=== PATIENT | female | born 1990 | race Caucasian/White ===

== ENCOUNTER 2020-02-10 12:56 | Day surgery (SDC) | payer OTHER ==
[2020-02-10] MEDS ORDERED: Promethazine HCl 25 MG/ML VIAL IM PRN (12:59)
[2020-02-10] MEDS ORDERED: hydrALAZINE 20 MG/ML VIAL SLOW IVP PRN ×2 (12:59)
[2020-02-10] MEDS ORDERED: Ondansetron PF 4 MG/2 ML Vial IVP PRN (12:59)
--- NOTE | 2020-02-10 13:06 | PDOC.LDHP ---
Labor and Delivery H&P Chief complaint: other (Sent from [facility] for elevated BP) HPI: Patient had routine visit at [facility] today. Her blood pressure was elvated x 2 in office. She denies LOF. Denies severe features including MORSE, RUQ, scomata. Current gestational age (weeks): 36 Grav: 1 Para: 0 Current complications: breech Abnormal US findings: No (Posterior placenta) Current medications: pre-fidel vitamins Social history: none - Assessment 29 y.o at 36w with elevated BP and Breech presentation - Plan -: Labs ordered. Continuous monitoring Serial BPs If Patient has any severe range BPs or develops severe features I will admit for delivery. Will consult OB hospitalist to consider ECV after epidural placement If patient has mild range BP or is normotensive, i will schedule her to PCS or ECV adn IOl at 37 week.
[2020-02-10 13:27] LABS: Hemoglobin 11.6 g/dL (12.0-16.0); Mean Corpuscular HGB CONC 34.3 g/dL (32.0-36.0); Mean Corpuscular Hemoglobin 30.5 pg (27.0-31.0); Mean Corpuscular Volume 89.1 fL (78.0-98.0); Mean Platelet Volume 7.2 fL (7.4-10.4); Platelet Count 499 thou/uL (130-400); RBC Distribution Width 12.4 % (11.5-14.5); White Blood Cell (WBC) Count 10.5 thou/uL (4.8-10.8)
[2020-02-10 13:28] VITALS: BMI 32.9
[2020-02-10 13:47] LABS: ALT (SGPT) 23 U/L (8-55); AST (SGOT) 19 U/L (5-34); Alkaline Phosphatase 202 U/L (40-110); Anion Gap 13 mmol/L (10-20); BUN (Urea Nitrogen) 10 mg/dL (7.0-18.7); Bilirubin, Total 0.2 mg/dL (0.2-1.2); Calc. Creatinine Clearance 148 mL/min (70-130); Calcium 8.8 mg/dL (7.8-10.44); Carbon Dioxide 18 mmol/L (22-29); Chloride 107 mmol/L (98-107); Estimated GFR-MDRD Greater than 90; Globulin 3.4 g/dL (2.4-3.5); Glucose 114 mg/dL (70-105); Potassium 4.2 mmol/L (3.5-5.1); Protein, Total 6.4 g/dL (6.0-8.3); Sodium 134 mmol/L (136-145)
[2020-02-10 14:34] LABS: Creatinine, Urine 54.54 mg/dL (47-110)
--- NOTE | 2020-02-10 15:21 | PDOC.BPN ---
- Brief Progress Note Encounter Date: 02/10/20 Encounter Time: 15:11 Labs. Laboratory Tests 02/10/20 02/10/20 02/10/20 13:15 13:15 13:30 WBC 10.5 RBC 3.80 L Hgb 11.6 L Hct 33.9 L Plt Count 499 H Sodium 134 L Carbon Dioxide 18 L Glucose 114 H AST 19 ALT 23 U Random Total Protein 12 Urine Creatinine 54.54 BPs:133/79, 138/89, 130/79, 134/80, 136/81, 135/79 Plan; patient is discharged home in good condition. One week follow up with Swati Monahan at [facility]. Will discuss ECV vs. Primary C -section. 24 hour urine kit ordered through office.
== END 2020-02-10 15:20 | disposition home or self-care (01) ==
LOC: L&D/OP 12:56
PROVIDERS: ATTEND Obstetrics & Gynecology
DX: O99.891 Other specified diseases and conditions complicating pregnancy (principal); R03.0 Elevated blood-pressure reading, without diagnosis of hypertension; O32.1XX0 Maternal care for breech presentation, not applicable or unspecified; Z3A.36 36 weeks gestation of pregnancy
CPT/HCPCS: 36415; 80053; 82570; 84156; 85027

== ENCOUNTER 2020-02-17 11:52 | Inpatient (IN) | payer OTHER ==
[2020-02-17] MEDS ORDERED: Promethazine HCl 25 MG/ML VIAL IM PRN ×3 (11:58→16:39)
[2020-02-17] MEDS ORDERED: hydrALAZINE 20 MG/ML VIAL SLOW IVP PRN (11:58)
[2020-02-17] MEDS ORDERED: Ondansetron PF 4 MG/2 ML Vial IVP PRN ×3 (11:58→16:39)
[2020-02-17] MEDS ORDERED: CEFAZOLIN 2 GM in Premix Bag 1 BAG IVPB SCH (12:00)
[2020-02-17] MEDS ORDERED: Bicitra 30 ML UDCUP PO SCH (12:15)
--- NOTE | 2020-02-17 12:16 | PDOC.LDHP ---
Labor and Delivery H&P Chief complaint: other HPI: Pt arrives from office for severe range BPs and BREECH presentation. She reports pressure behind her eyes. Denies Scomata and RUQ pain. Current gestational age (weeks): 37 (a) Due date: 03/08/20 Dating criteria: last menstrual period Grav: 1 Para: 0 Current complications: gestational hypertension (with severe features), breech Current medications: pre- vitamins Previous surgical history: none Allergies/Adverse Reactions: Allergies Allergy/AdvReac Type Severity Reaction Status Date / Time No Known Allergies Allergy Verified 02/10/20 13:28 Social history: none - Physical Exam Abnormal vital signs: Severe BP 172/84 General: NAD Lungs: nonlabored breathing Abdomen: gravid Extremeties: other (+3 reflexes) FHT: category 1 Millard contractions every: none - Vaginal Exam cm dilated: 0 (deferred) - OB Labs Blood type: O RH: positive Antibody Screen: negative HIV: negative RPR: negative HEPSAg: negative 1 hour GCT: negative GBS: negative Urine drug screen: negative Rubella: immune - Assessment L&D Assessment: scheduled primary section GHTN with severe features r/o preeclampsia Breech presentation - Plan Plan: admit to L&D, informed consent obtained, magnesium for seizure prophylaxis, anesthesia consult for pain management -: Dr. Leblanc to assume care for JENNIFER. Swati Monahan to environmental assistant.
[2020-02-17] MEDS ORDERED: Calcium Gluc 4.6 MEQ/10 ML (100 MG/ML) SLOW IVP PRN (12:21)
[2020-02-17] MEDS ORDERED: Ketorolac Tromethamine 30 MG/ML VIAL ONE (12:28)
[2020-02-17] MEDS ORDERED: Oxytocin 10 UNITS/ML VIAL ONE ×2 (12:28→16:47)
[2020-02-17] MEDS ORDERED: Ondansetron PF 4 MG/2 ML Vial ONE (12:28)
[2020-02-17] MEDS ORDERED: Morphine PF 10 MG/10 ML VIAL ONE ×2 (12:28→15:39)
[2020-02-17] MEDS ORDERED: PHENYLEPHRINE-NS 100 MCG/ML 10 ML SYRINGE ONE (12:28)
[2020-02-17] MEDS ORDERED: ePHEDrine 50 MG/ML VIAL ONE (12:28)
[2020-02-17] MEDS ORDERED: Magnesium Sulfate 20 gm/500 ml 20 GM/500 ML BAG ONE (12:29)
[2020-02-17] MEDS ORDERED: Magnesium Sulfate 20 GM/WATER 500 ML BAG IVPB SCH (12:30)
[2020-02-17] MEDS ORDERED: Magnesium Sulfate 20 gm/500 ml 20 GM/500 ML BAG IVPB SCH (12:30)
[2020-02-17] MEDS ORDERED: Sodium Chloride 0.9% 10 ML ONE (12:30)
[2020-02-17 12:39] VITALS: BMI 32.3
[2020-02-17] MEDS: Lactated Ringer's 1,000 ML IV SCH ×2 (12:52→22:49)
[2020-02-17] MEDS ORDERED: diphenhydrAMINE 50 MG/ML VIAL IVP PRN ×2 (13:15→16:39)
[2020-02-17] MEDS ORDERED: Communication Order-Pharmacy FS SCH ×2 (13:15→16:45)
[2020-02-17] MEDS ORDERED: Ondansetron HCl/PF 4 MG/2 ML Vial IVP PRN ×2 (13:15→16:39)
[2020-02-17] MEDS ORDERED: Ketorolac Tromethamine 30 MG/ML VIAL IVP PRN ×2 (13:15→16:39)
[2020-02-17] MEDS ORDERED: Naloxone HCl 0.4 mg/ml Vial IVP PRN ×4 (13:15→16:39)
[2020-02-17] MEDS ORDERED: Naloxone HCl 0.4 mg/ml Vial IV PRN ×2 (13:15→16:39)
[2020-02-17] MEDS ORDERED: Promethazine HCl 25 MG SUPP PR PRN ×2 (13:15→16:39)
[2020-02-17 13:18] LABS: Mean Corpuscular HGB CONC 32.2 g/dL (32.0-36.0); Mean Corpuscular Hemoglobin 29.6 pg (27.0-31.0); Mean Corpuscular Volume 91.9 fL (78.0-98.0); Mean Platelet Volume 7.6 fL (7.4-10.4); Platelet Count 535 thou/uL (130-400); RBC Distribution Width 13.5 % (11.5-14.5); Red Blood Cell (RBC) Count 3.71 mill/uL (4.20-5.40); White Blood Cell (WBC) Count 13.7 thou/uL (4.8-10.8)
[2020-02-17 14:00] LABS: ALT (SGPT) 25 U/L (8-55); AST (SGOT) 26 U/L (5-34); Albumin 3.2 g/dL (3.5-5.0); Alkaline Phosphatase 206 U/L (40-110); Anion Gap 15 mmol/L (10-20); BUN (Urea Nitrogen) 14 mg/dL (7.0-18.7); Bilirubin, Total 0.2 mg/dL (0.2-1.2); Calc. Creatinine Clearance 146 mL/min (70-130); Carbon Dioxide 18 mmol/L (22-29); Chloride 106 mmol/L (98-107); Estimated GFR-MDRD Greater than 90; Globulin 3.3 g/dL (2.4-3.5); Glucose 70 mg/dL (70-105); Potassium 4.2 mmol/L (3.5-5.1); Protein, Total 6.5 g/dL (6.0-8.3); Sodium 135 mmol/L (136-145)
[2020-02-17 14:06] LABS: Syphilis Antibody Nonreactive (Nonreactive); Syphilis Antibody Index 0.04 S/CO (<1.00 Non-Reactive)
[2020-02-17 14:08] LABS: HBSAg Index 0.15 S/CO (0-0.99); Hep B Surf Ag Non-Reactive S/CO (NonReactive)
[2020-02-17 14:55] LABS: Bacteria/HPF 4+ HPF (None Seen); Bilirubin Negative (Negative); Blood, Urine Negative (Negative); Clarity Turbid (Clear); Glucose, Urine (Dipstick) Normal (Negative); Ketone, Urine Negative (Negative); Leukocyte 500 Leu/uL (Negative); Nitrite Negative (Negative); Protein, Urine (Dipstick) Negative (Neg-Trace); Specific Gravity, Urine 1.012 (1.002-1.036); Urobilinogen Normal mg/dL (Less than 2); pH, Urine 6.5 (5.0-9.0)
[2020-02-17] MEDS ORDERED: Fentanyl 100 MCG/2 ML VIAL ONE (15:39)
[2020-02-17] MEDS ORDERED: Dexamethasone 4 mg/ml Vial ONE (15:40)
[2020-02-17] MEDS ORDERED: L&D-Morphine 4 MG/ML VIAL SLOW IVP PRN (16:39)
[2020-02-17] MEDS ORDERED: Meperidine HCl/PF 25 MG/ML VIAL SLOW IVP PRN (16:39)
[2020-02-17] MEDS ORDERED: HYDROmorphone 2 MG/ML VIAL SLOW IVP PRN (16:39)
[2020-02-17] MEDS ORDERED: Ketorolac Tromethamine 30 MG/ML VIAL IVP SCH (16:45)
--- NOTE | 2020-02-17 16:52 | PDOC.OPDEL ---
OB Operative/Delivery Note Delivery Dr/Surgeon: Benji Assist: Light Pre-Delivery Diagnosis: other (Severe PIH, Breech presentation) Procedure/Post Delivery Dx: primary low transverse CS Weeks gestation: 37 Anesthesia: spinal - Findings A Sex: male Weight: 7 lb 4 oz - 1 min: 8 - 5 min: 9 - Additional Findings/Plan Placenta delivered: spontaneous findings: low transverse hysterotomy without extension, normal uterus, normal tubes, normal ovaries Estimated blood loss: 500cc Compilations/Other Findings: marcelino breech presentation Post delivery plan: recovery in LICU
[2020-02-18] MEDS ORDERED: NS / Oxytocin 40 units/1000ml 1,000 ML IV SCH (00:09)
[2020-02-18] MEDS ORDERED: Magnesium Sulfate 20 gm/500 ml 20 GM/500 ML BAG IVPB SCH (00:09)
[2020-02-18] MEDS ORDERED: Ondansetron PF 4 MG/2 ML Vial IVP PRN (00:09)
[2020-02-18] MEDS ORDERED: Misoprostol 200 MCG TAB PR PRN (00:09)
[2020-02-18] MEDS ORDERED: Calcium Gluconate 4.6 MEQ in Sodium Chloride 0.9% 100 ML IVPB PRN (00:09)
[2020-02-18] MEDS ORDERED: Simethicone Chewable 80 MG TAB PO PRN (00:09)
[2020-02-18] MEDS ORDERED: HYDROcodone/Acetaminophen 5/325 mg Tablet PO PRN ×2 (00:09)
[2020-02-18] MEDS ORDERED: hydrALAZINE 20 MG/ML VIAL SLOW IVP PRN (00:09)
[2020-02-18 06:31] LABS: Hemoglobin 7.1 g/dL (12.0-16.0); Mean Corpuscular HGB CONC 33.7 g/dL (32.0-36.0); Mean Corpuscular Hemoglobin 30.4 pg (27.0-31.0); Mean Corpuscular Volume 90.3 fL (78.0-98.0); Platelet Count 376 thou/uL (130-400); RBC Distribution Width 13.4 % (11.5-14.5); Red Blood Cell (RBC) Count 2.35 mill/uL (4.20-5.40); White Blood Cell (WBC) Count 15.9 thou/uL (4.8-10.8)
[2020-02-18] MEDS ORDERED: Adacel (T-DAP) 0.5 ML SYRINGE IM ONE (09:00)
[2020-02-18] MEDS: Acetaminophen 650 MG Suppository PR SCH ×3 (11:02→21:26)
[2020-02-18] MEDS: Prenatal Vitamin 1 TAB PO SCH (11:03)
[2020-02-18] MEDS: Lactated Ringer's 1,000 ML IV SCH ×2 (11:03→15:02)
[2020-02-18 11:59] LABS: SARS-CoV-2 MS2 Positive; SARS-CoV-2 N Gene Negative; SARS-CoV-2 S Gene Negative; SARS-CoV-2 by NAA Not Detected (NotDetected); SARS-CoV-2 orf1ab Negative
--- NOTE | 2020-02-18 14:08 | PDOC.PP ---
Post Progress Note Post Day #: 1 Subjective: Pt is feeling tired, but doing well. PO intake tolerated: yes Flatus: yes Ambulation: yes Vital Signs (12 hours) Temp Pulse Resp BP Pulse Ox 02/18/20 10:30 98.4 F 106 H 16 120/73 97 Weight Weight 177 lb - Physical Examination General: NAD Respiratory: non-labored breathing Abdominal: + bowel sounds, no distention Extremities: negative homans (B) Skin: no rash Neurological: no gross focal deficits Psychiatric: A&Ox3, normal affect Result Diagrams: 02/18/20 06:02 02/17/20 12:36 Additional Labs: Post Labs Hep Bs Antigen Non-Reactive S/CO (NonReactive) 02/17/20 12:36 Blood Type O POSITIVE 02/17/20 13:16 (1) History of low transverse section Code(s): Z98.891 - HISTORY OF UTERINE SCAR FROM PREVIOUS SURGERY Status: Acute - Assessment/Plan Pt is doing well. PPD 1 routine care. Transfer to Normotensive. Evaluate for discharge tomorrow.
[2020-02-18] MEDS: Ibuprofen 800 MG TAB PO SCH ×2 (14:09→21:22)
[2020-02-19] MEDS: Acetaminophen 650 MG Suppository PR SCH ×3 (06:16→13:41)
[2020-02-19] MEDS: Ibuprofen 800 MG TAB PO SCH ×2 (06:20→13:46)
[2020-02-19] MEDS: Lactated Ringer's 1,000 ML IV SCH (09:05)
[2020-02-19] MEDS: Prenatal Vitamin 1 TAB PO SCH (09:06)
[2020-02-19 12:41] VITALS: BP 126/71; TEMP 98.5
--- NOTE | 2020-03-02 16:54 | OP ---
DATE OF PROCEDURE: 02/17/2020 PREOPERATIVE DIAGNOSES: 1. Intrauterine at 37 weeks. 2. Severe preeclampsia. 3. Breech presentation. POSTOPERATIVE DIAGNOSES: 1. Intrauterine at 37 weeks. 2. Severe preeclampsia. 3. Breech presentation. PROCEDURE PERFORMED: Primary low-transverse section via Pfannenstiel skin incision. ANESTHESIA: Spinal. AUTOMOBILE RADIATOR MECHANIC SURGEON: Ying Monahan CNM FINDINGS: Male infant, 7 pounds 4 ounces, clear amniotic fluid, Apgars 8 and 9, breech presentation. Low transverse hysterotomy without extension. Normal uterus, ovaries, and tubes bilaterally. ESTIMATED BLOOD LOSS: 500 mL. COMPLICATIONS: None. DRAINS: Reyes catheter. PATHOLOGY: None. DESCRIPTION OF PROCEDURE: The patient was taken to the operating room where spinal anesthesia was obtained without difficulty. The patient was prepped and draped in a sterile fashion in a dorsal supine position with a leftward tilt. After ensuring adequacy of anesthesia, a Pfannenstiel skin incision was made and carried down to the underlying subcutaneous tissue with a knife. The fascia was nicked in the midline with a knife and carried laterally with the Wisdom scissors. The superior aspect of the fascia was tented with 2 Brett's and dissected off the rectus bluntly with a lap sponge. The inferior aspect of the fascia was tented with 2 Brett's and dissected off the rectus down to the pubic symphysis with the Wisdom scissors. The rectus muscles were divided in the midline and the peritoneum was bluntly entered into and manually retracted. The Sincere O retractor was placed. The lower uterine segment was incised in a transverse fashion, extended with a Colmenares maneuver, and the breech was brought to the hysterotomy and delivered with standard breech maneuvers. The head was easily delivered with flexion and pressure on the upper part of the uterus. The 's cord was clamped and was handed to awaiting Robi team. Cord blood was obtained. The placenta was allowed to spontaneously deliver. The uterus was exteriorized, cleared of all clots and debris, and the uterus was placed back into the abdomen. The hysterotomy was repaired with #1 Monocryl in a running locking fashion. A 2nd imbricating layer of #1 Monocryl in a horizontal fashion was also placed. Hemostasis was noted to be excellent. The pelvis was copiously irrigated and suctioned and again noted hemostasis of the hysterotomy. The Sincere O retractor was removed. The rectus muscles were examined and noted to be hemostatic. The fascia was reapproximated with 0 PDS x1 suture with excellent reapproximation. The subcutaneous tissue was irrigated and cauterized of any bleeders and reapproximated with a 2-0 plain gut in a running fashion. The skin was closed with 4-0 Monocryl in a subcuticular fashion. Dermabond was applied as well as pressure dressing. The patient tolerated the procedure well. Sponge, lap, and needle counts correct x2. The patient was taken to Recovery in stable condition. The patient received Ancef 2 g prior to procedure. Job ID: [id number]
== END 2020-02-19 16:00 | disposition home or self-care (01) | DRG 788 ==
LOC: L&D 11:52 → 3SE 02-18 11:07
PROVIDERS: ADMIT Obstetrics & Gynecology; ATTEND Obstetrics & Gynecology
PROC: 10D00Z1 Extraction of Products of Conception, Low, Open Approach (ICD-10-PCS; principal; 2020-02-17)
DX: O32.1XX0 Maternal care for breech presentation, not applicable or unspecified (principal); O14.14 Severe pre-eclampsia complicating childbirth; Z3A.37 37 weeks gestation of pregnancy; Z37.0 Single live birth; Z20.828 Contact with and (suspected) exposure to other viral communicable diseases
CPT/HCPCS: 36415; 51702; 80053; 81001; 83735; 85027; 86780; 86850; 86900; 86901; 87340; 87635; J1100; J1885; J2270; J2405; J2550; J3010; J3475; J3490; U0003